=== PATIENT | male | born 1955 | race African-American/Black ===

== ENCOUNTER → 2016-10-24 | Outpatient (CLI) | payer MEDICARE, MEDICAID ==
[~2016-10-24] MED LIST: ALBU6.7H2 INH; BACL-141 PO; BRINZOLAMIDE OP; FURO-151 PO; GABA300C PO; IPRA3AMP IH; LATA2.5D2 RIGHTEYE; MONT10TA21 PO; P20 PO; PYRI60TA10 PO; [UNRECOGNIZED DRUG - OTHER] IH
== END | disposition home or self-care (01) ==
LOC: MRI 10:22
PROVIDERS: ATTEND Internal Medicine Critical Care Medicine
DX: I99.8 Other disorder of circulatory system (principal); R42 Dizziness and giddiness; R90.82 White matter disease, unspecified
CPT/HCPCS: 70551

== ENCOUNTER 2016-12-27 23:20 | Emergency (ER) | payer MEDICARE, MEDICAID | END 2016-12-28 01:00 | disposition left against medical advice (07) | LOC: ER 23:20 | DX: R10.9 Unspecified abdominal pain (principal); Z53.21 Procedure and treatment not carried out due to patient leaving prior to being seen by health care provider ==

== ENCOUNTER 2017-01-01 01:49 | Inpatient (IN) | payer MEDICARE, MEDICAID ==
[~2017-01-01] VITALS: Ht 185.4 cm; Wt 114.3 kg
[2017-01-01] MEDS ORDERED: ONDANSETRON HCL 4MG/2ML VIAL IV STA (02:20)
[2017-01-01] MEDS ORDERED: SODIUM CHLORIDE 0.9% 1,000 ML IV ONE (02:20)
[2017-01-01] MEDS ORDERED: MORPHINE SULFATE 4 MG/ML CPJ (NOT FOR IM USE) IV STA (02:20)
[2017-01-01 02:39] LABS: BASOPHILS % 0.4 % (0.0-2.0); EOSINOPHILS % 0.2 % (0.0-5.0); HEMATOCRIT. 42.3 % (42.0-52.0); HEMOGLOBIN. 14.4 g/dL (14.0-18.0); LYMPHOCYTES % 13.3 % (20.0-50.0); MEAN CORPUSCULAR HEMOGLOBIN 34.6 pg (28.0-32.0); MEAN CORPUSCULAR VOLUME 102.1 fL (80.0-94.0); MEAN PLATELET VOLUME 8.3 fl (7.4-10.4); MONOCYTES % 9.7 % (2.0-8.0); NEUTROPHILS % 76.4 % (40.0-76.0); PLATELET 145 x1000/uL (130-400); RED BLOOD CELL COUNT 4.15 mill/uL (4.7-6.1); RED CELL DISTRIBUTION WIDTH 12.6 % (11.6-14.6)
[2017-01-01 02:43] LABS: INR 1.1; PROTHROMBIN TIME 10.9 sec (9.4-11.6)
[2017-01-01 02:54] LABS: CARBON DIOXIDE 28 mEq/L (21-32); CHLORIDE 109 mEq/L (98-107); TROPONIN I < 0.02 ng/mL (0.00-0.04)
[2017-01-01] MEDS ORDERED: ACETAMINOPHEN 325MG TABLET PO PRN ×2 (05:30→08:00)
[2017-01-01] MEDS ORDERED: SODIUM CHLORIDE 0.9% 1,000 ML IV SCH (05:30)
[2017-01-01] MEDS ORDERED: TRAMADOL 50MG TABLET PO PRN ×2 (08:00)
[2017-01-01] MEDS ORDERED: DOCUSATE SODIUM 100MG CAPSULE PO PRN (08:00)
[2017-01-01] MEDS ORDERED: GUAIFENESIN 200MG/10ML SUGAR FREE UDC PO PRN (08:00)
[2017-01-01] MEDS ORDERED: NITROGLYCERIN 0.4MG TABLET SL SL PRN (08:00)
[2017-01-01] MEDS ORDERED: DIPHENHYDRAMINE 50MG/ML VIAL IV PRN (08:00)
[2017-01-01] MEDS ORDERED: NA PHOS,M-B/NA PHOS,DI-BA ENEMA 118ML PR PRN (08:00)
[2017-01-01] MEDS ORDERED: CLONIDINE 0.1MG TABLET PO PRN (08:00)
[2017-01-01] MEDS ORDERED: ONDANSETRON HCL 4MG/2ML VIAL IV PRN (08:00)
[2017-01-01] MEDS ORDERED: IPRATROPIUM/ALBUTEROL 0.5-3(2.5)MG/3ML NEB INH PRN (08:00)
[2017-01-01] MEDS ORDERED: LORAZEPAM 2MG/ML CPJ IV PRN (08:00)
[2017-01-01 10:00] VITALS: BP 158/85
[2017-01-01] MEDS: FAMOTIDINE 20MG/2ML VIAL IV SCH ×2 (10:23→20:26)
[2017-01-01] MEDS: ENOXAPARIN 30MG/0.3ML SYR SUBCUT SCH ×2 (10:24→20:26)
[2017-01-01] MEDS: MORPHINE SULFATE 4 MG/ML CPJ (NOT FOR IM USE) IV PRN ×3 (10:24→20:28)
[2017-01-01] MEDS: SODIUM CHLORIDE 0.9% 1,000 ML IV SCH ×2 (11:46→22:33)
[2017-01-01 12:00] VITALS: BP 124/78
[2017-01-01] MEDS ORDERED: AZOPT BOTHEYE (12:41)
[2017-01-01] MEDS ORDERED: MEDICATION NOT ON FORMULARY EA (Brinzolamide (Azopt) 1 ML) BOTHEYE SCH (13:00)
[2017-01-01 16:00] VITALS: BP 127/71
[2017-01-01] MEDS: DORZOLAMIDE 2% OPHTH 10 ML BOTTLE BOTHEYE SCH (17:08)
[2017-01-01] MEDS ORDERED: IPRATROPIUM BROMIDE (0.02%) 0.5MG/2.5ML NEB HHN SCH (18:00)
[2017-01-01 20:00] VITALS: BP 132/74
[2017-01-01] MEDS: MONTELUKAST SODIUM 10MG TABLET PO SCH (20:26)
[2017-01-01] MEDS ORDERED: ZOLPIDEM TARTRATE 5MG TABLET PO PRN (21:00)
[2017-01-01] MEDS ORDERED: LATANOPROST 0.005% OPHTH DROPS 2.5ML RIGHTEYE SCH (21:00)
[2017-01-01] MEDS: IPRATROPIUM/ALBUTEROL 0.5-3(2.5)MG/3ML NEB HHN SCH (21:04)
[2017-01-01] MEDS: BUDESONIDE 0.5MG/2ML NEB HHN SCH (21:04)
[2017-01-02] VITALS (7 sets, daily range): BP systolic 133–156; BP diastolic 74–90
[2017-01-02] MEDS: IPRATROPIUM/ALBUTEROL 0.5-3(2.5)MG/3ML NEB HHN SCH ×4 (00:53→20:49)
[2017-01-02] MEDS: SODIUM CHLORIDE 0.9% 1,000 ML IV SCH ×2 (04:54→17:05)
[2017-01-02] MEDS: DORZOLAMIDE 2% OPHTH 10 ML BOTTLE BOTHEYE SCH ×3 (08:16→17:00)
[2017-01-02] MEDS: FAMOTIDINE 20MG/2ML VIAL IV SCH ×2 (08:16→21:19)
[2017-01-02] MEDS: ENOXAPARIN 30MG/0.3ML SYR SUBCUT SCH ×2 (08:17→21:19)
[2017-01-02] MEDS: BUDESONIDE 0.5MG/2ML NEB HHN SCH ×2 (08:30→20:50)
[2017-01-02] MEDS ORDERED: [UNRECOGNIZED DRUG - OTHER] IH SCH (09:00)
[2017-01-02] MEDS ORDERED: FUROSEMIDE 40MG/4ML VIAL IVP NR (13:30)
[2017-01-02] MEDS: PYRIDOSTIGMINE BROMIDE 60MG TABLET PO SCH ×2 (14:07→21:19)
[2017-01-02] MEDS: MONTELUKAST SODIUM 10MG TABLET PO SCH ×2 (21:19→21:20)
[2017-01-03] VITALS: BP 122/80
[2017-01-03] MEDS: IPRATROPIUM/ALBUTEROL 0.5-3(2.5)MG/3ML NEB HHN SCH ×2 (00:16→07:42)
[2017-01-03 04:00] VITALS: BP 132/83
[2017-01-03] MEDS: PYRIDOSTIGMINE BROMIDE 60MG TABLET PO SCH (06:27)
[2017-01-03] MEDS: BUDESONIDE 0.5MG/2ML NEB HHN SCH (07:41)
[2017-01-03 08:00] VITALS: BP 158/91
[2017-01-03] MEDS: DORZOLAMIDE 2% OPHTH 10 ML BOTTLE BOTHEYE SCH (08:20)
[2017-01-03] MEDS: FAMOTIDINE 20MG/2ML VIAL IV SCH (08:21)
[2017-01-03] MEDS: ENOXAPARIN 30MG/0.3ML SYR SUBCUT SCH (08:21)
[2017-01-03 09:12] LABS: AMYLASE 76 IU/L (25-115)
[2017-01-03 10:01] VITALS: BP 142/84
== END 2017-01-03 10:40 | disposition home or self-care (01) | DRG 439 ==
LOC: ER 01:49 → 5WST 05:32 → EDBEDREQTM 05:56 → EDBEDREQ 05:56 → ENRESERV 07:24 → SUPCPDRO 07:49
PROVIDERS: ADMIT Internal Medicine; ATTEND Internal Medicine
DX: K85.30 Drug induced acute pancreatitis without necrosis or infection (principal); E44.1 Mild protein-calorie malnutrition; G70.00 Myasthenia gravis without (acute) exacerbation; K57.92 Diverticulitis of intestine, part unspecified, without perforation or abscess without bleeding; K76.0 Fatty (change of) liver, not elsewhere classified; Z99.81 Dependence on supplemental oxygen; G35 Multiple sclerosis; G62.9 Polyneuropathy, unspecified; M48.02 Spinal stenosis, cervical region; J44.9 Chronic obstructive pulmonary disease, unspecified; M48.06 Spinal stenosis, lumbar region; G47.33 Obstructive sleep apnea (adult) (pediatric); H40.9 Unspecified glaucoma; K21.9 Gastro-esophageal reflux disease without esophagitis; E66.9 Obesity, unspecified; Z88.8 Allergy status to other drugs, medicaments and biological substances; Z91.041 Radiographic dye allergy status; Z79.899 Other long term (current) drug therapy; G90.9 Disorder of the autonomic nervous system, unspecified; T50.995A Adverse effect of other drugs, medicaments and biological substances, initial encounter; Y92.89 Other specified places as the place of occurrence of the external cause; Z68.33 Body mass index [BMI] 33.0-33.9, adult
CPT/HCPCS: 36415; 71010; 74176; 76700; 80053; 80061; 82150; 83036; 83605; 83690; 84484; 85025; 85610; 93005; 93970; 94640; 94660; 94664; 96361; 96372; 96374; 96375; 96376; 99285; J1650; J1940; J2270; J2405; J3490; J7030; J7620; J7626